=== PATIENT | female | born 1990 | race Caucasian/White ===

== ENCOUNTER 2017-05-24 21:56 | Emergency (ER) | payer OTHER ==
[~2017-05-24] VITALS: Ht 182.9 cm; Wt 82.8 kg
[2017-05-24 22:01] VITALS: BP 133/79; PULSE 108; RESP 16; TEMP 96.9; O2SAT 98
[2017-05-24] MEDS ORDERED: CEPH-460 PO (22:12)
[2017-05-24] MEDS ORDERED: BACT800T5 PO (22:12)
[2017-05-24] MEDS ORDERED: SULFAMETHOXAZOLE-TRIMETHOPRIM DS 800-160 MG TAB PO ONE (22:15)
[2017-05-24] MEDS ORDERED: TETANUS/DIPHTHERIA TOXOID ADULT 0.5 ML VIAL IM ONE (22:15)
[2017-05-24] MEDS ORDERED: CEPHALEXIN MONOHYDRATE 500 MG CAP PO ONE (22:15)
--- NOTE | 2017-05-24 22:15 | PD ---
HPI Chief Complaint: Skin Problem Time Seen by Provider: 22:04 Travel History International Travel<30 days: No Contact w/Intl Traveler<30days: No Traveled to known affect area: No History of Present Illness HPI This 27-year-old female presents with complaint of pain and redness behind her right leg. She had this area is been inflamed for about a day. There was a small amount of drainage from the site. There is no history of trauma. She did burn her leg a few days previously on a muffler. PFSH Past Medical History ADHD: No Cancer: No Diabetes: No Psychiatric: No Migraines: No Seizures: No Thyroid Disease: No Ulcer: No Past Surgical History Appendectomy: No Cholecystectomy: No Social History Alcohol Use: Yes Tobacco Use: No Substance Use: Yes Allergies-Medications (Allergen,Severity, Reaction): Coded Allergies: No Known Allergies (Verified , 10/13/15) Reported Meds & Prescriptions Reported Meds & Active Scripts Active Bactrim DS (Sulfamethoxazole-Trimethoprim) 800-160 Mg Tab 1 Tab PO BID Keflex (Cephalexin) 500 Mg Cap 500 Mg PO Q6H 7 Days Review of Systems General / Constitutional: No: Fever, Chills Eyes: No: Diploplia HENT: No: Headaches Cardiovascular: No: Chest Pain or Discomfort, Palpitations Respiratory: No: Cough, Shortness of Breath Gastrointestinal: No: Vomiting, Diarrhea Genitourinary: No: Urgency, Frequency Musculoskeletal: No: Myalgias Skin: Positive Rash Neurologic: No: Weakness Physical Exam Narrative GENERAL: Well-developed female SKIN: Focused skin assessment warm/dry. Bruising area of erythema behind the right knee which is somewhat tender. I don't feel any fluctuant collection. There is some induration. HEAD: Atraumatic. Normocephalic. EYES: Pupils equal and round. No scleral icterus. No injection or drainage. ENT: No nasal bleeding or discharge. Mucous membranes pink and moist. NECK: Trachea midline. No JVD. CARDIOVASCULAR: Regular rate and rhythm. No murmur appreciated. RESPIRATORY: No accessory muscle use. Clear to auscultation. Breath sounds equal bilaterally. GASTROINTESTINAL: Abdomen soft, non-tender, nondistended. Hepatic and splenic margins not palpable. MUSCULOSKELETAL: No obvious deformities. No clubbing. No cyanosis. No edema. NEUROLOGICAL: Awake and alert. No obvious cranial nerve deficits. Motor grossly within normal limits. Normal speech. PSYCHIATRIC: Appropriate mood and affect; insight and judgment normal. Data Data Last Documented VS Vital Signs Date Time Temp Pulse Resp B/P Pulse Ox O2 Delivery O2 Flow Rate FiO2 05/24/17 22:01 96.9 108 16 133/79 98 Orders Tetanus/Diphtheria Tox Adult (Tetanus/Di (05/24/17 22:15) Sulfamet-Trimeth Ds 800-160 Mg (Bactrim (05/24/17 22:15) Cephalexin (Keflex) (05/24/17 22:15) [facility] Medical Decision Making Medical Screen Exam Complete: Yes Emergency Medical Condition: Yes Medical Record Reviewed: Yes Differential Diagnosis Differential includes cellulitis, abscess Narrative Course This is most consistent with a cellulitis. I don't feel a fluctuant collection. Put her on Keflex and Bactrim. Recommend warm compresses and soaks. Diagnosis Primary Impression: Cellulitis of right leg Scripts Sulfamethoxazole-Trimethoprim (Bactrim DS)800-160 Mg Tab1 Tab PO BID #14 TAB Ref 0 Prov:Bg Rhodes MD 05/24/17 Cephalexin (Keflex)500 Mg [id number] Mg PO Q6H 7 Days Ref 0 Prov:Bg Rhodes MD 05/24/17 Disposition: DISCHARGE HOME Condition: Stable Bg Rhodes MD May 24, 2017 22:15
== END 2017-05-24 22:28 | disposition home or self-care (01) ==
LOC: PHEFT 21:56
DX: L03.115 Cellulitis of right lower limb (principal); Z23 Encounter for immunization
CPT/HCPCS: 90471; 90714

== ENCOUNTER 2017-05-26 16:12 | Inpatient (IN) | payer SELFPAY ==
[~2017-05-26] VITALS: Ht 182.9 cm; Wt 89.5 kg
[~2017-05-26 16:12] MED LIST: BACT800T5 PO; CEPH-460 PO
[2017-05-26 16:21] VITALS: BP 125/79; PULSE 103; RESP 16; TEMP 98.2; O2SAT 98
[2017-05-26] MEDS ORDERED: HYDROmorphone HCL PF 1 MG/ML VIAL IV PUSH ONE (16:45)
[2017-05-26] MEDS ORDERED: SODIUM CHLOR 0.9% 1000 ML INJ 1,000 ML IV ONE (16:45)
--- NOTE | 2017-05-26 16:59 | PD ---
HPI Chief Complaint: Skin Problem Time Seen by Provider: 16:30 Travel History International Travel<30 days: No Contact w/Intl Traveler<30days: No Traveled to known affect area: No History of Present Illness HPI This is a 27-year-old female who has a history of IV drug use who presents to the emergency Department with 6 days of increasing redness and swelling of her right lower extremity. She was seen here in the emergency department 2 days ago and diagnosed with cellulitis. She didn't think it was cellulitis so she didn't fill her antibiotics. She went to [facility] prior to coming here earlier today. She had a CT scan and an ultrasound and was admitted but she said people were being mean to her en route to her because of her history of IV drug use she left. [facility] Past Medical History Hx Anticoagulant Therapy: No ADHD: No Cancer: No Cardiovascular Problems: Yes (endocarditis) Diabetes: No Diminished Hearing: No Psychiatric: No Migraines: No Seizures: No Thyroid Disease: No Ulcer: No ?: Not Past Surgical History Appendectomy: No Cholecystectomy: Yes Other Surgery: Yes (endocarditis) Social History Alcohol Use: Yes (OCC) Tobacco Use: Yes (I PPD) Substance Use: Yes (IV DRUG USE: LAST USE 1 WEEK AGO (05/26/17)) Allergies-Medications (Allergen,Severity, Reaction): Coded Allergies: No Known Allergies (Verified , 05/26/17) Reported Meds & Prescriptions Reported Meds & Active Scripts Active No Active Prescriptions or Reported Medications Review of Systems Except as stated in HPI: all other systems reviewed are Neg Physical Exam Narrative GENERAL:Well appearing, no acute distress SKIN: Fullness, and induration of the right calf with a small pustule, erythema and warmth that extends from the popliteal fossa down to the distal calf on the posterior aspect of the leg HEAD: Atraumatic. Normocephalic. EYES: Pupils equal and round. No injection or drainage. ENT: Moist mucous membranes NECK: Trachea midline. CARDIOVASCULAR: Regular rate and rhythm. No murmur appreciated. RESPIRATORY: Clear to auscultation. Breath sounds equal bilaterally. GASTROINTESTINAL: Abdomen soft, non-tender, nondistended. MUSCULOSKELETAL: No obvious deformities. NEUROLOGICAL: Awake and alert. No obvious cranial nerve deficits. Moving all extremities. PSYCHIATRIC: Appropriate mood and affect; insight and judgment normal. Data Data Last Documented VS Vital Signs Date Time Temp Pulse Resp B/P Pulse Ox O2 Delivery O2 Flow Rate FiO2 05/26/17 16:21 98.2 103 16 125/79 98 Orders Complete Blood Count With Diff (05/26/17 16:39) Comprehensive Metabolic Panel (05/26/17 16:39) Lactic Acid Sepsis Protocol (05/26/17 16:39) Urinalysis - C+S If Indicated (05/26/17 16:39) Blood Culture (05/26/17 16:39) Wound Culture And Gram Stain (05/26/17 16:39) Blood Glucose (05/26/17 16:39) Ecg Monitoring (05/26/17 16:39) Iv Access Insert/Monitor (05/26/17 16:39) Oximetry (05/26/17 16:39) Oxygen Administration (05/26/17 16:39) Sodium Chlor 0.9% 1000 Ml Inj (Ns 1000 M (05/26/17 16:45) Hydromorphone Pf Inj (Dilaudid Pf Inj) (05/26/17 16:45) Vancomycin Inj (Vancomycin Inj) (05/26/17 17:45) Ed Poc Ultrasound (05/26/17 ) Lidocai-Epi 1%-1:100,000 Inj (Xylocaine- (05/26/17 17:45) Lidocaine Pf 1% Inj (Xylocaine-Mpf 1% In (05/26/17 18:00) Admit Order (Ed Use Only) (05/26/17 17:56) Labs Laboratory Tests Test 05/26/17 16:55 White Blood Count 17.5 TH/MM3 Red Blood Count 4.63 MIL/MM3 Hemoglobin 13.6 GM/DL Hematocrit 40.2 % Mean Corpuscular Volume 86.9 FL Mean Corpuscular Hemoglobin 29.4 PG Mean Corpuscular Hemoglobin 33.8 % Concent Red Cell Distribution Width 12.1 % Platelet Count 259 TH/MM3 Mean Platelet Volume 8.8 FL Neutrophils (%) (Auto) 81.0 % Lymphocytes (%) (Auto) 10.8 % Monocytes (%) (Auto) 7.9 % Eosinophils (%) (Auto) 0.2 % Basophils (%) (Auto) 0.1 % Neutrophils # (Auto) 14.2 TH/MM3 Lymphocytes # (Auto) 1.9 TH/MM3 Monocytes # (Auto) 1.4 TH/MM3 Eosinophils # (Auto) 0.0 TH/MM3 Basophils # (Auto) 0.0 TH/MM3 CBC Comment DIFF FINAL Differential Comment Sodium Level 139 MEQ/L Potassium Level 3.0 MEQ/L Chloride Level 104 MEQ/L Carbon Dioxide Level 25.5 MEQ/L Anion Gap 10 MEQ/L Blood Urea Nitrogen 14 MG/DL Creatinine 0.91 MG/DL Estimat Glomerular Filtration 75 ML/MIN Rate Random Glucose 111 MG/DL Lactic Acid Level 1.7 mmol/L Calcium Level 8.8 MG/DL Total Bilirubin 0.5 MG/DL Aspartate Amino Transf 34 U/L (AST/SGOT) Alanine Aminotransferase 47 U/L (ALT/SGPT) Alkaline Phosphatase 89 U/L Total Protein 8.6 GM/DL Albumin 3.5 GM/DL [facility] Medical Decision Making Medical Screen Exam Complete: Yes Emergency Medical Condition: Yes Medical Record Reviewed: Yes (medical records were obtained from [facility]. At that time the patient had a white blood cell count of 20. She had a CT of the right lower extremity demonstrating a complex fluid collection measuring 3 x 4 cm consistent with an abscess. She also had a Doppler ultrasound which is negative for DVT.) Interpretation(s) Afebrile, tachycardia, normotensive Leukocytosis with 81% neutrophils Hypokalemia Lactic acid is 1.7 Differential Diagnosis Cellulitis, abscess, necrotizing fasciitis, endocarditis, sepsis Narrative Course Is a 27-year-old female who has a history of endocarditis and is an active IV drug user who presents to the emergency department with a cellulitis and abscess on her right lower extremity. CT imaging was performed at [facility] prior to her arrival here which demonstrated a 4 x 3 cm abscess in the calf. I did a bedside ultrasound which demonstrated the abscess was very superficial and I felt I could safely drain the abscess without injuring any surrounding neurovascular structures. I performed a bedside incision and drainage and expressed a copious amount of pus. Packing was placed in the wound. Patient was given a dose of IV vancomycin and cultures were obtained. Patient will be admitted for sepsis in the setting of an abscess and rule out endocarditis. Procedures Procedure Narrative Incision and drainage: The right calf distal to the popliteal fossa was anesthetized with 5 cc of 1% lidocaine. An 11 blade scalpel was used to make a superficial incision. Copious pus was expressed from the wound. Loculations were broken up using blunt forceps. Iodoform gauze was placed in the wound. Patient tolerated the procedure well. Physician Communication Physician Communication Discussed with Dr. Mcgarry Diagnosis Primary Impression: Abscess of leg, right Additional Impression: Sepsis Qualified Code: A41.9 - Sepsis, due to unspecified organism Admitting Information Admitting Physician Requests: Admit Scripts No Active Prescriptions or Reported Meds Priti Stevens MD May 26, 2017 16:59
[2017-05-26 17:24] LABS: AUTOMATED NEUTROPHIL # 14.2 TH/MM3 (1.8-7.7); BASOPHIL % 0.1 % (0.0-2.0); EOSINOPHIL % 0.2 % (0.0-4.0); HEMATOCRIT 40.2 % (35.0-46.0); LYMPH % 10.8 % (9.0-44.0); LYMPHOCYTE # 1.9 TH/MM3 (1.0-4.8); MEAN CELL VOLUME 86.9 FL (80.0-100.0); MEAN CORPUSCULAR HEMOGLOBIN 29.4 PG (27.0-34.0); MEAN CORPUSCULAR HGB CONC 33.8 % (32.0-36.0); MONO % 7.9 % (0.0-8.0); PLATELET COUNT 259 TH/MM3 (150-450); RED BLOOD COUNT 4.63 MIL/MM3 (4.00-5.30); RED CELL DISTRIBUTION WIDTH 12.1 % (11.6-17.2); WHITE BLOOD COUNT 17.5 TH/MM3 (4.0-11.0)
[2017-05-26 17:33] LABS: CHLORIDE 104 MEQ/L (98-107); HEMO FLAGS DIFF FINAL; SODIUM (NA) 139 MEQ/L (136-145)
[2017-05-26 17:36] LABS: ANION GAP 10 MEQ/L (5-15); BICARBONATE 25.5 MEQ/L (21.0-32.0)
[2017-05-26 17:37] LABS: BLOOD UREA NITROGEN 14 MG/DL (7-18)
[2017-05-26 17:40] LABS: ALT (GPT) 47 U/L (10-53); AST (GOT) 34 U/L (15-37); GLOMERULAR FILTRATION RATE 75 ML/MIN (>89)
[2017-05-26 17:41] LABS: TOTAL BILIRUBIN ADULT 0.5 MG/DL (0.2-1.0)
[2017-05-26 17:42] LABS: ALKALINE PHOSPHATASE 89 U/L (45-117)
[2017-05-26] MEDS ORDERED: VANCOMYCIN INJ 1,300 MG in SODIUM CHLORID 0.9% 500 ML INJ 500 ML IV ONE (17:45)
[2017-05-26] MEDS ORDERED: LIDOCAINE 1%/EPINEPHrine 1:100,000 SOLN 20 ML VIAL INFIL ONE (17:45)
[2017-05-26] MEDS ORDERED: ONDANSETRON HCL 4 MG/2 ML VIAL IVP PRN (18:00)
[2017-05-26] MEDS ORDERED: LIDOCAINE HCL 1% PF 30 ML VIAL SQ ONE (18:00)
[2017-05-26] MEDS ORDERED: RESP: ALBUTEROL 2.5 MG/IPRATROPIUM 0.5 MG NEB (PRN) NEB (18:00)
[2017-05-26] MEDS ORDERED: SODIUM CHLORIDE 0.9% FLUSH 10 ML FLUSH IV FLUSH PRN (18:00)
[2017-05-26] MEDS ORDERED: Vancomycin Consult Pharmacy 1 EA OTHER SCH (18:00)
[2017-05-26] MEDS ORDERED: ACETAMINOPHEN/HYDROcodone 325 MG/5 MG TAB PO PRN (18:00)
[2017-05-26] MEDS ORDERED: TEMAZEPAM 15 MG CAP PO PRN (18:00)
[2017-05-26] MEDS ORDERED: MAGNESIUM HYDROXIDE SUSP 30 ML CUP PO PRN (18:00)
[2017-05-26] MEDS ORDERED: NALOXONE HCL 0.4 MG/ML AMP IV PRN (18:00)
[2017-05-26] MEDS ORDERED: ACETAMINOPHEN 325 MG TAB PO PRN ×2 (18:00)
--- NOTE | 2017-05-26 18:15 | HHI.HP ---
[facility] Service [facility] Primary Care Physician No Primary Care Physician Admission Diagnosis cellulitis, sepsis Diagnoses: (1) Cellulitis of right leg (2) Sepsis (3) Abscess of leg, right (4) IV drug user (5) Tobacco abuse Chief Complaint: Right lower extremity redness and swelling Travel History International Travel<30 Days: No Contact w/Intl Traveler <30 Da: No Traveled to Known Affected Are: No Sepsis Criteria SIRS Criteria (2 or more): Heart rate over 90, WBC > 44857, < 4000 or > 10% bands Sepsis Criteria (SIRS+source): Infect source susp/known Criteria Outcome: Meets sepsis criteria History of Present Illness 27-year-old female with a prior history of endocarditis and current IV drug use presented to the ED for evaluation of 61 history of worsening right lower extremity swelling and redness associated with pain rated 5/10 intensity as well as 1 day history of febrile episode. Patient went for an outside facility today, where a CT scan of the right lower extremity along with an Doppler were performed and ruled out VT however showed the presence of an abscess. On patient presented to the ED here in [place] 1 initial evaluation of pain and redness of the right leg. Patient reported at that time she did burn her leg a few days prior on a muffler and she had small amount of drainage. She was then discharged with by mouth antibiotics, which patient did not feel. She is currently using IV amphetamine.She has no chest pain or shortness of breath Review of Systems Except as stated in HPI: all other systems reviewed are Neg Past Family Social History Past Medical History Tobacco abuse IV drug use Endocarditis Past Surgical History Cholecystectomy Reported Medications Not Currently on any medication Allergies: Coded Allergies: No Known Allergies (Verified , 05/26/17) Family History She denies any family history of heart disease, diabetes, hypertension Social History Alcohol Use: Yes (OCC) Tobacco Use: Yes (I PPD) Substance Use: Yes (IV DRUG USE: LAST USE 1 WEEK AGO (05/26/17)) Physical Exam Vital Signs Vital Signs Date Time Temp Pulse Resp B/P Pulse Ox O2 Delivery O2 Flow Rate FiO2 05/26/17 16:21 98.2 103 16 125/79 98 Physical Exam GENERAL: This is a well-nourished, well-developed patient, in no apparent distress. SKIN: induration of the right calf with a small pustule, erythema and warmth that extends from the popliteal fossa down to the distal calf on the posterior aspect of the leg HEAD: Atraumatic. Normocephalic. No temporal or scalp tenderness. EYES: Pupils equal round and reactive. Extraocular motions intact. No scleral icterus. No injection or drainage. ENT: Nose without bleeding, purulent drainage or septal hematoma. Throat without erythema, tonsillar hypertrophy or exudate. Uvula midline. Airway patent. NECK: Trachea midline. No JVD or lymphadenopathy. Supple, nontender, no meningeal signs. CARDIOVASCULAR: Regular rate and rhythm without murmurs, gallops, or rubs. RESPIRATORY: Clear to auscultation. Breath sounds equal bilaterally. No wheezes , rales, or rhonchi. GASTROINTESTINAL: Abdomen soft, non-tender, nondistended. No hepato-splenomegaly , or palpable masses. No guarding. MUSCULOSKELETAL: Extremities without clubbing, cyanosis, or edema. No joint tenderness, effusion, or edema noted. No calf tenderness. Negative Homans sign bilaterally. NEUROLOGICAL: Awake and alert. Cranial nerves II through XII intact. Motor and sensory grossly within normal limits. Five out of 5 muscle strength in all muscle groups. Normal speech. Laboratory Laboratory Tests Test 05/26/17 16:55 White Blood Count 17.5 Red Blood Count 4.63 Hemoglobin 13.6 Hematocrit 40.2 Mean Corpuscular Volume 86.9 Mean Corpuscular Hemoglobin 29.4 Mean Corpuscular Hemoglobin 33.8 Concent Red Cell Distribution Width 12.1 Platelet Count 259 Mean Platelet Volume 8.8 Neutrophils (%) (Auto) 81.0 Lymphocytes (%) (Auto) 10.8 Monocytes (%) (Auto) 7.9 Eosinophils (%) (Auto) 0.2 Basophils (%) (Auto) 0.1 Neutrophils # (Auto) 14.2 Lymphocytes # (Auto) 1.9 Monocytes # (Auto) 1.4 Eosinophils # (Auto) 0.0 Basophils # (Auto) 0.0 CBC Comment DIFF FINAL Differential Comment Sodium Level 139 Potassium Level 3.0 Chloride Level 104 Carbon Dioxide Level 25.5 Anion Gap 10 Blood Urea Nitrogen 14 Creatinine 0.91 Estimat Glomerular Filtration 75 Rate Random Glucose 111 Lactic Acid Level 1.7 Calcium Level 8.8 Total Bilirubin 0.5 Aspartate Amino Transf 34 (AST/SGOT) Alanine Aminotransferase 47 (ALT/SGPT) Alkaline Phosphatase 89 Total Protein 8.6 Albumin 3.5 Date/Time Procedure Status Source Growth 05/26/17 17:55 Aerobic Blood Culture Received Blood Peripheral Pending 05/26/17 17:55 Anaerobic Blood Culture Received Blood Peripheral Pending Result Diagram: 05/26/17 1655 05/26/17 1655 Assessment and Plan Problem List: (1) Sepsis ICD Code: A41.9 Status: Acute (2) Cellulitis of right leg ICD Code: L03.115 Status: Acute (3) Abscess of leg, right ICD Code: L02.415 Status: Acute (4) IV drug user ICD Code: F19.90 Status: Acute (5) Tobacco abuse ICD Code: Z72.0 Status: Acute Assessment and Plan 27-year-old female with Sepsis: Meets sepsis criteria; Heart rate over 90, WBC > 22962, < 4000 or > 10% bands, Infect source susp/known (cellulitis and abscess right leg); status post vancomycin IV 1 in ED home will continue with antibiotics and add Rocephin pending culture report. Check 2-D echo to rule out endocarditis secondary to patient history of IV drug use Cellulitis right leg IV antibiotics including vancomycin and Rocephin and culture report Abscess right leg I&D per ED physician pending wound culture Continue with above antibiotics Leukocytosis: From above infectious processes IV drug abuser Check UDS Counseled to quit Check 2-D echo to rule out endocarditis secondary to patient's prior history of endocarditis and current use of IV amphetamine Tobacco abuse Tobacco counseling cessation Nicotine patch treatment Code Status Full code Discussed Condition With Patient, ED physician Physician Certification 2 Midnight Certification Type: Admission for Inpatient Services Order for Inpatient Services The services are ordered in accordance with Medicare regulations or non- Medicare payer requirements, as applicable. In the case of services not specified as inpatient-only, they are appropriately provided as inpatient services in accordance with the 2-midnight benchmark. Estimated LOS (days): 2 days is the estimated time the patient will need to remain in the hospital, assuming treatment plan goals are met and no additional complications. Post-Hospital Plan: Not yet determined Problem Qualifiers (1) Sepsis: Qualified Code: A41.9 - Sepsis, due to unspecified organism Toni Mcgarry MD May 26, 2017 18:15
[2017-05-26 19:45] VITALS: O2SAT 98
[2017-05-26 20:00] VITALS: BP 122/74; PULSE 90; RESP 18; O2SAT 98
[2017-05-26] MEDS ORDERED: NICOTINE 21 MG/24 HR PATCH T-DERMAL SCH (20:00)
[2017-05-26 20:40] VITALS: BP 125/79; PULSE 89; RESP 18; TEMP 98; O2SAT 98
[2017-05-26] MEDS: REMOVE OLD PATCH T-DERMAL SCH (21:00)
[2017-05-26] MEDS: cefTRIAXone INJ 1,000 MG in SODIUM CHLORIDE 0.9% INJ 100 ML IV SCH (23:08)
[2017-05-26] MEDS: SODIUM CHLORIDE 0.9% FLUSH 10 ML FLUSH IV FLUSH SCH (23:09)
[2017-05-26] MEDS: LACTOBACILLUS ACIDOPHILUS TAB PO SCH (23:09)
[2017-05-27 00:20] VITALS: BP 100/57; PULSE 68; RESP 18; TEMP 98; O2SAT 97
[2017-05-27] MEDS: VANCOMYCIN 1,000 MG/NS 250 ML IV SCH ×6 (03:31→17:38)
[2017-05-27 06:38] LABS: AUTOMATED NEUTROPHIL # 5.4 TH/MM3 (1.8-7.7); BASOPHIL # 0.1 TH/MM3 (0-0.2); BASOPHIL % 0.7 % (0.0-2.0); EOSINOPHIL # 0.1 TH/MM3 (0-0.4); EOSINOPHIL % 1.1 % (0.0-4.0); HEMO FLAGS DIFF FINAL; LYMPH % 30.4 % (9.0-44.0); LYMPHOCYTE # 2.9 TH/MM3 (1.0-4.8); MEAN CELL VOLUME 87.6 FL (80.0-100.0); MEAN CORPUSCULAR HEMOGLOBIN 28.3 PG (27.0-34.0); MEAN CORPUSCULAR HGB CONC 32.3 % (32.0-36.0); MONO % 9.4 % (0.0-8.0); NEUT % 58.4 % (16.0-70.0); PLATELET COUNT 227 TH/MM3 (150-450); RED BLOOD COUNT 3.99 MIL/MM3 (4.00-5.30); RED CELL DISTRIBUTION WIDTH 12.3 % (11.6-17.2); WHITE BLOOD COUNT 9.4 TH/MM3 (4.0-11.0)
[2017-05-27 06:46] LABS: CHLORIDE 110 MEQ/L (98-107); POTASSIUM 3.4 MEQ/L (3.5-5.1); SODIUM (NA) 145 MEQ/L (136-145)
[2017-05-27 07:00] LABS: ALKALINE PHOSPHATASE 58 U/L (45-117); ALT (GPT) 35 U/L (10-53); ANION GAP 8 MEQ/L (5-15); AST (GOT) 24 U/L (15-37); BICARBONATE 26.8 MEQ/L (21.0-32.0); BLOOD UREA NITROGEN 12 MG/DL (7-18); GLOMERULAR FILTRATION RATE 149 ML/MIN (>89); TOTAL BILIRUBIN ADULT 0.3 MG/DL (0.2-1.0)
[2017-05-27 08:00] VITALS: BP 95/56; PULSE 52; RESP 16; TEMP 96.3; O2SAT 98
[2017-05-27] MEDS ORDERED: VANCOMYCIN INJ 1,250 MG in SODIUM CHLOR 0.9% 250 ML INJ 250 ML IV SCH ×2 (09:00→21:46)
[2017-05-27] MEDS: NICOTINE 21 MG/24 HR PATCH T-DERMAL SCH (09:11)
[2017-05-27] MEDS: ACETAMINOPHEN/HYDROcodone 325 MG/7.5 MG TAB PO PRN ×3 (09:12→17:39)
[2017-05-27] MEDS: LACTOBACILLUS ACIDOPHILUS TAB PO SCH ×2 (09:12→20:27)
[2017-05-27] MEDS: SODIUM CHLORIDE 0.9% FLUSH 10 ML FLUSH IV FLUSH SCH ×2 (09:13→20:27)
--- NOTE | 2017-05-27 11:14 | HHI.PR ---
Subjective Remarks Follow-up sepsis/right lower extremity cellulitis and abscess 05/27/17-patient seen and examined, currently afebrile denies any significant right lower extremity pain. No acute event overnight. WBC 9.4 and potassium 3.4 Objective Vitals Vital Signs Date Time Temp Pulse Resp B/P Pulse Ox O2 Delivery O2 Flow Rate FiO2 05/27/17 08:00 96.3 52 16 95/56 98 05/27/17 05:14 05/27/17 00:20 98.0 68 18 100/57 97 05/26/17 20:44 88 18 98 05/26/17 20:40 98.0 89 18 125/79 98 05/26/17 20:00 90 18 122/74 98 Room Air 05/26/17 19:45 98 Room Air 05/26/17 19:45 98 Room Air 05/26/17 16:21 98.2 103 16 125/79 98 I/O 05/26/17 05/26/17 05/26/17 05/27/17 05/27/17 05/27/17 06:59 14:59 22:59 06:59 14:59 22:59 Intake Total 720 ml Balance 720 ml Intake Oral 720 ml # Voids 3 Result Diagram: 05/27/17 0550 05/27/17 0550 Objective Remarks GENERAL: NAD SKIN: Warm and dry. HEAD: Normocephalic. EYES: No scleral icterus. No injection or drainage. NECK: Supple, trachea midline. No JVD or lymphadenopathy. CARDIOVASCULAR: Regular rate and rhythm without murmurs, gallops, or rubs. RESPIRATORY: Breath sounds equal bilaterally. No accessory muscle use. GASTROINTESTINAL: Abdomen soft, non-tender, nondistended. MUSCULOSKELETAL: No cyanosis, or edema. Bandage over right lower extremity abscess-neurovascular intact BACK: Nontender without obvious deformity. No CVA tenderness. A/P Problem List: (1) Sepsis ICD Code: A41.9 Status: Acute (2) Cellulitis of right leg ICD Code: L03.115 Status: Acute (3) Abscess of leg, right ICD Code: L02.415 Status: Acute (4) IV drug user ICD Code: F19.90 Status: Acute (5) Tobacco abuse ICD Code: Z72.0 Status: Acute Assessment and Plan 27-year-old female with Sepsis: Meets sepsis criteria; Heart rate over 90, WBC > 43047, < 4000 or > 10% bands, Infect source susp/known (cellulitis and abscess right leg); status post vancomycin IV 1 in ED; continue with antibiotics and add Rocephin pending culture report. 2-D echo pending to rule out endocarditis secondary to patient history of IV drug use Cellulitis right leg IV antibiotics including vancomycin and Rocephin and culture report pending Abscess right leg Status post I&D pending wound culture Continue with above antibiotics Leukocytosis: From above infectious processes Now resolved IV drug abuser UDS pending Counseled to quit 2-D echo pending to rule out endocarditis secondary to patient's prior history of endocarditis and current use of IV amphetamine Tobacco abuse Tobacco counseling cessation Nicotine patch treatment Hypokalemia Give potassium 60 mEq 1 now and monitor Problem Qualifiers (1) Sepsis: Qualified Code: A41.9 - Sepsis, due to unspecified organism Toni Mcgarry MD May 27, 2017 11:14
--- NOTE | 2017-05-27 11:56 | ECHRPT ---
Indication: endocarditis CONCLUSIONS The left ventricular systolic function is normal with an estimated ejection fraction in the range of 55-60%. Mild mitral valve regurgitation. Probable previous tricuspid valve surgery with ring placement. There is mild tricuspid valve regurgitation. BP: / HR: Rhythm: MEASUREMENTS (Male / Female) Normal Values Technical Quality:Good 2D ECHO LV Diastolic Diameter PLAX 5.3 cm 4.2 - 5.9 / 3.9 - 5.3 cm LV Systolic Diameter PLAX 4.0 cm IVS Diastolic Thickness 0.8 cm 0.6 - 1.0 / 0.6 - 0.9 cm LVPW Diastolic Thickness 0.8 cm 0.6 - 1.0 / 0.6 - 0.9 cm LV Relative Wall Thickness 0.3 RV Internal Dim ED PLAX 3.0 cm M-MODE Aortic Root Diameter MM 2.9 cm LA Systolic Diameter MM 4.0 cm LA Ao Ratio MM 1.4 AV Cusp Separation MM 2.2 cm DOPPLER LV E' Lateral Velocity 13.7 cm/s LV E' Septal Velocity 10.6 cm/s TR Peak Velocity 219.0 cm/s TR Peak Gradient 19.2 mmHg FINDINGS LEFT VENTRICLE Normal left ventricular size. Wall thickness is normal. The left ventricular systolic function is normal with an estimated ejection fraction in the range of 55-60%. RIGHT VENTRICLE Normal right ventricular size and systolic function. LEFT ATRIUM The left atrial size is normal. RIGHT ATRIUM The right atrial size is normal. ATRIAL SEPTUM Normal atrial septal thickness without atrial level shunting by limited color doppler interrogation. AORTA The aortic root and proximal ascending aorta are normal in size on limited imaging. MITRAL VALVE Structurally normal mitral valve. Mild mitral valve regurgitation. AORTIC VALVE Probable trileaflet aortic valve. No aortic valve stenosis or regurgitation. TRICUSPID VALVE Probable previous tricuspid valve surgery with ring placement. There is mild tricuspid valve regurgitation. The estimated pulmonary arterial pressure is 29. PULMONARY VALVE The pulmonary valve is not well visualized. VESSELS IVC 2.5 PERICARDIUM No pericardial effusion. Mikhail Luu DO (Electronically Signed) Final Date:27 May 2017 11:55
[2017-05-27 12:00] VITALS: BP 100/56; PULSE 59; RESP 16; TEMP 96.7; O2SAT 97
[2017-05-27] MEDS ORDERED: POTASSIUM CHLORIDE 10 MEQ CONTROLLED RELEASE TAB PO ONE (12:00)
[2017-05-27 17:14] VITALS: BP 117/64; PULSE 56; RESP 19; TEMP 96.9; O2SAT 97
[2017-05-27] MEDS ORDERED: PHARMACY ORDERED LAB ONE (17:45)
[2017-05-27 20:00] VITALS: BP 119/63; PULSE 60; RESP 16; TEMP 96.5; O2SAT 96
[2017-05-27] MEDS: cefTRIAXone INJ 1,000 MG in SODIUM CHLORIDE 0.9% INJ 100 ML IV SCH (20:27)
[2017-05-27] MEDS: REMOVE OLD PATCH T-DERMAL SCH (21:00)
[2017-05-27] MEDS ORDERED: NICOTINE 21 MG/24 HR PATCH T-DERMAL SCH ×2 (22:00)
[2017-05-28] VITALS: BP 109/63; PULSE 60; RESP 18; TEMP 96.4; O2SAT 96
[2017-05-28] MEDS: VANCOMYCIN INJ 1,250 MG in SODIUM CHLOR 0.9% 250 ML INJ 250 ML IV SCH ×2 (01:16→10:01)
[2017-05-28] MEDS: SODIUM CHLORIDE 0.9% FLUSH 10 ML FLUSH IV FLUSH SCH (07:09)
[2017-05-28] MEDS: ACETAMINOPHEN/HYDROcodone 325 MG/7.5 MG TAB PO PRN ×2 (07:09→11:34)
[2017-05-28] MEDS: LACTOBACILLUS ACIDOPHILUS TAB PO SCH (07:09)
[2017-05-28] MEDS: NICOTINE 21 MG/24 HR PATCH T-DERMAL SCH (07:09)
[2017-05-28 08:40] VITALS: BP 110/61; PULSE 54; RESP 19; TEMP 96.9; O2SAT 98
[2017-05-28 08:41] LABS: POTASSIUM 3.8 MEQ/L (3.5-5.1)
[2017-05-28 08:45] LABS: BICARBONATE 25.7 MEQ/L (21.0-32.0)
--- NOTE | 2017-05-28 10:00 | HHI.PR ---
Subjective Remarks Follow-up sepsis/right lower extremity cellulitis and abscess 05/27/17-patient seen and examined, currently afebrile denies any significant right lower extremity pain. No acute event overnight. WBC 9.4 and potassium 3.4 05/28/17-patient seen and examined, stable and no acute event overnight. Wound positive for MRSA Objective Vitals Vital Signs Date Time Temp Pulse Resp B/P Pulse Ox O2 Delivery O2 Flow Rate FiO2 05/28/17 08:40 96.9 54 19 110/61 98 05/28/17 00:00 96.4 60 18 109/63 96 05/27/17 20:00 96.5 60 16 119/63 96 05/27/17 17:14 96.9 56 19 117/64 97 05/27/17 12:00 96.7 59 16 100/56 97 I/O 05/27/17 05/27/17 05/27/17 05/28/17 05/28/17 05/28/17 07:00 15:00 23:00 07:00 15:00 23:00 Intake Total 720 ml 1270 ml 240 ml Balance 720 ml 1270 ml 240 ml Intake Oral 720 ml 1270 ml 240 ml # Voids 3 7 4 # Bowel Movements 2 0 Result Diagram: 05/27/17 0550 05/28/17 0740 Objective Remarks GENERAL: NAD SKIN: Warm and dry. HEAD: Normocephalic. EYES: No scleral icterus. No injection or drainage. NECK: Supple, trachea midline. No JVD or lymphadenopathy. CARDIOVASCULAR: Regular rate and rhythm without murmurs, gallops, or rubs. RESPIRATORY: Breath sounds equal bilaterally. No accessory muscle use. GASTROINTESTINAL: Abdomen soft, non-tender, nondistended. MUSCULOSKELETAL: No cyanosis, or edema. Bandage over right lower extremity abscess-neurovascular intact BACK: Nontender without obvious deformity. No CVA tenderness. Procedures None A/P Problem List: (1) Sepsis ICD Code: A41.9 Status: Resolved (2) Cellulitis of right leg ICD Code: L03.115 Status: Acute (3) Abscess of leg, right ICD Code: L02.415 Status: Acute (4) IV drug user ICD Code: F19.90 Status: Acute (5) Tobacco abuse ICD Code: Z72.0 Status: Acute Assessment and Plan 27-year-old female with Sepsis: Meets sepsis criteria; Heart rate over 90, WBC > 47670, < 4000 or > 10% bands, Infect source susp/known (cellulitis and abscess right leg); status post vancomycin IV 1 in ED; continue with antibiotics . 2-D echo ruled out endocarditis secondary to patient history of IV drug use Cellulitis right leg-MRSA positive De-escalate antibiotic and discontinue Rocephin Continue with vancomycin Abscess right leg-MRSA positive Status post I&D pending wound culture De-escalate antibiotic by discontinue Rocephin Continue with vancomycin however we'll switch to by mouth prior to discharge Leukocytosis: From above infectious processes Now resolved IV drug abuser UDS pending Counseled to quit 2-D echo ruled out endocarditis Tobacco abuse Tobacco counseling cessation Nicotine patch treatment Hypokalemia Give potassium 60 mEq 1 now and monitor Problem Qualifiers (1) Sepsis: Qualified Code: A41.9 - Sepsis, due to unspecified organism Toni Mcgarry MD May 28, 2017 10:00
--- NOTE | 2017-05-28 10:08 | HHI.DS ---
Discharge Summary Admission Date May 26, 2017 at 17:59 Discharge Date: May 28, 2017 Admitting Diagnosis cellulitis, sepsis (1) Sepsis ICD Code: A41.9 (2) Cellulitis of right leg ICD Code: L03.115 (3) Abscess of leg, right ICD Code: L02.415 (4) IV drug user ICD Code: F19.90 (5) Tobacco abuse ICD Code: Z72.0 Procedures None Brief History - From Admission 27-year-old female with a prior history of endocarditis and current IV drug use presented to the ED for evaluation of 61 history of worsening right lower extremity swelling and redness associated with pain rated 5/10 intensity as well as 1 day history of febrile episode. Patient went for an outside facility today, where a CT scan of the right lower extremity along with an Doppler were performed and ruled out VT however showed the presence of an abscess. On patient presented to the ED here in [place] 1 initial evaluation of pain and redness of the right leg. Patient reported at that time she did burn her leg a few days prior on a muffler and she had small amount of drainage. She was then discharged with by mouth antibiotics, which patient did not feel. She is currently using IV amphetamine.She has no chest pain or shortness of breath CBC/BMP: 05/27/17 0550 05/28/17 0740 Significant Findings Laboratory Tests Test 05/26/17 05/27/17 05/28/17 16:55 05:50 07:40 White Blood Count 17.5 TH/MM3 (4.0-11.0) Neutrophils (%) (Auto) 81.0 % (16.0-70.0) Neutrophils # (Auto) 14.2 TH/MM3 (1.8-7.7) Monocytes # (Auto) 1.4 TH/MM3 (0-0.9) Potassium Level 3.0 MEQ/L 3.4 MEQ/L (3.5-5.1) (3.5-5.1) Estimat Glomerular Filtration 75 ML/MIN (>89) Rate Random Glucose 111 MG/DL (74-106) Total Protein 8.6 GM/DL 6.1 GM/DL (6.4-8.2) (6.4-8.2) Red Blood Count 3.99 MIL/MM3 (4.00-5.30) Hemoglobin 11.3 GM/DL (11.6-15.3) Monocytes (%) (Auto) 9.4 % (0.0-8.0) Chloride Level 110 MEQ/L 110 MEQ/L (98-107) (98-107) Calcium Level 7.9 MG/DL 8.0 MG/DL (8.5-10.1) (8.5-10.1) Albumin 2.3 GM/DL (3.4-5.0) Creatinine 0.45 MG/DL (0.50-1.00) PE at Discharge GENERAL: NAD SKIN: Warm and dry. HEAD: Normocephalic. EYES: No scleral icterus. No injection or drainage. NECK: Supple, trachea midline. No JVD or lymphadenopathy. CARDIOVASCULAR: Regular rate and rhythm without murmurs, gallops, or rubs. RESPIRATORY: Breath sounds equal bilaterally. No accessory muscle use. GASTROINTESTINAL: Abdomen soft, non-tender, nondistended. MUSCULOSKELETAL: No cyanosis, or edema. Bandage over right lower extremity abscess-neurovascular intact BACK: Nontender without obvious deformity. No CVA tenderness. Hospital Course Patient was admitted due to sepsis secondary to cellulitis in right lower extremity abscess for which she was started on IV antibiotics including vancomycin and Rocephin. I&D of right lower extremity abscess was done the ED . Wound culture was obtained and positive for MRSA for which patient was continued on vancomycin however switch to by mouth on discharge. 2-D echo was negative for endocarditis. Wound care was provided. Prior to discharge, patient's condition improved and vitals remained stable. Pt Condition on Discharge: Stable Discharge Disposition: Discharge Home Discharge Time: <= 30 minutes Discharge Instructions DIET: Follow Instructions for: As Tolerated, No Restrictions Activities you can perform: Regular-No Restrictions Toni Mcgarry MD May 28, 2017 10:08
[2017-05-28] MEDS ORDERED: IBUP400T20 PO (10:09)
[2017-05-28] MEDS ORDERED: BACT800T5 PO (10:09)
[2017-05-29] MEDS ORDERED: PHARMACY ORDERED LAB ONE (09:45)
== END 2017-05-28 12:11 | disposition home or self-care (01) | DRG 872 ==
LOC: PHED 16:12 → PHEDA 17:59 → PH3A 20:35
PROVIDERS: ADMIT Hospitalist; ATTEND Hospitalist
DX: A41.9 Sepsis, unspecified organism (principal); L02.415 Cutaneous abscess of right lower limb; L03.115 Cellulitis of right lower limb; E87.6 Hypokalemia; F19.10 Other psychoactive substance abuse, uncomplicated; F17.200 Nicotine dependence, unspecified, uncomplicated
CPT/HCPCS: 80048; 80053; 80202; 83605; 85025; 86403; 87040; 87070; 87147; 87186; 87205; 93306; J0696; J1170; J3370; J7030; J7040; J7050